=== PATIENT | male | born 1960 | race Asian ===

== ENCOUNTER 2021-03-20 22:12 | Emergency (ER) | payer BC ==
[~2021-03-20] VITALS: Ht 193 cm; Wt 106.6 kg
[2021-03-20 23:30] LABS: PLATELET COUNT 264 K/uL (142-355)
[2021-03-20 23:33] LABS: POTASSIUM 4.2 mmol/L (3.6-5.2)
[2021-03-21 00:03] VITALS: BP 152/87; TEMP 98.9
== END 2021-03-21 00:03 | disposition home or self-care (01) ==
LOC: ED 22:12
PROVIDERS: Emergency Medicine Emergency Medical Services
DX: L03.031 Cellulitis of right toe (principal); Z98.890 Other specified postprocedural states
CPT/HCPCS: 36415; 80053; 83605; 85027; 99283

== ENCOUNTER 2022-01-05 06:30 | Outpatient (CLI) | payer BC ==
[2022-01-05 07:15] LABS: PLATELET COUNT 223 K/uL (142-355)
[2022-01-05 07:31] LABS: POTASSIUM 4.7 mmol/L (3.6-5.2)
== END 2022-01-05 19:53 | disposition home or self-care (01) ==
LOC: EDBD 06:30 → LABW 06:30
PROVIDERS: ATTEND Family Medicine
DX: E11.8 Type 2 diabetes mellitus with unspecified complications (principal); E78.2 Mixed hyperlipidemia; E55.9 Vitamin D deficiency, unspecified
CPT/HCPCS: 36415; 80053; 80061; 81002; 82306; 83036; 84439; 84443; 85027